=== PATIENT | female | born 1970 | race Caucasian/White ===

== ENCOUNTER → 2016-10-15 | Outpatient (CLI) | payer OTHER ==
--- NOTE | 2016-10-15 15:06 | Diagnostic Imaging Report ---
Bilateral screening mammogram. The current study was also evaluated with a Computer Aided Detection (CAD) system. INDICATION: Screening. No current complaints stated on the questionnaire. COMPARISON: 09/12/2015. FINDINGS: The breasts are composed of a heterogeneously dense parenchyma which may decrease mammographic sensitivity. There is no mass, architectural distortion, or suspicious cluster of calcification. Allowing for technique and positional differences, no suspicious change is seen. IMPRESSION: No significant change. ACR BI-RADS Category 2: Benign findings. Result letter will be mailed to the patient. Note: At least 10% of breast cancer is not imaged by mammography. Dictated by: Dictated on workstation # [id number]
== END ==
LOC: RAD 10:05
PROVIDERS: ATTEND Obstetrics & Gynecology
DX: Z12.31 Encounter for screening mammogram for malignant neoplasm of breast (principal)

== ENCOUNTER → 2018-03-16 | Outpatient (CLI) | payer OTHER ==
--- NOTE | 2018-03-16 12:07 | Diagnostic Imaging Report ---
INDICATION: Routine screening. COMPARISON: 10/15/2016 and 09/12/2015. TECHNIQUE: 2D and 3D bilateral screening mammography was performed with CAD. FINDINGS: Both breasts are heterogeneously dense, limiting the sensitivity of mammography. The parenchymal pattern is stable. No mass or malignant appearing microcalcifications are seen. The axillae are unremarkable. IMPRESSION: No mammographic features suspicious for malignancy are identified. ACR BI-RADS Category 1: Negative. Result letter will be mailed to the patient. Note: At least 10% of breast cancer is not imaged by mammography. Dictated by: Dictated on workstation # [id number]
== END ==
LOC: RAD 08:57
PROVIDERS: ATTEND Obstetrics & Gynecology
DX: Z12.31 Encounter for screening mammogram for malignant neoplasm of breast (principal)
CPT/HCPCS: 77067

== ENCOUNTER → 2021-06-07 | Outpatient (CLI) | payer OTHER ==
--- NOTE | 2021-06-07 12:51 | Diagnostic Imaging Report ---
INDICATION: Splenic cyst. PROCEDURE: Ultrasound abdomen complete. TECHNIQUE: Multiple real-time grayscale images were obtained of the abdomen in various projections. Liver is normal in size at 14.5 cm. The portal vein is patent and shows normal direction of flow. No liver mass is detected. Gallbladder contains multiple small stones. No wall thickening or biliary ductal dilatation is seen. Pancreas is unremarkable. The spleen is normal in size at 10.9 cm. There is a cyst measuring 2.5 x 2.7 x 2.4 cm within the spleen. Kidneys are unremarkable. No calculi or hydronephrosis is seen. There is no ascites. IMPRESSION: 1. Cholelithiasis without evidence of acute cholecystitis. 2. Splenic cyst. Dictated by: Dictated on workstation # [id number]
== END ==
LOC: RAD 08:45
PROVIDERS: ATTEND Surgery
DX: D73.4 Cyst of spleen (principal); K80.20 Calculus of gallbladder without cholecystitis without obstruction
CPT/HCPCS: 76700

== ENCOUNTER 2021-07-19 06:03 | Day surgery (SDC) | payer OTHER ==
[~2021-07-19] VITALS: Ht 172 cm; Wt 88.3 kg
[2021-07-19] VITALS (11 sets, daily range): BP systolic 108–131; BP diastolic 60–72
[~2021-07-19 06:03] MED LIST: CHOL400T29 PO; MULT-141 PO; VITA1TAB17 PO
[2021-07-19] MEDS ORDERED: ceFAZolin 2 GM IV Premixed 50 ML IV ONE (06:15)
[2021-07-19] MEDS ORDERED: MIDAZOLAM 2 MG/2 ML (VERSED) VIAL IVP ONE (07:00)
[2021-07-19] MEDS: LACTATED RINGERS 1,000 ML IV PRN ×2 (07:00→08:35)
[2021-07-19] MEDS ORDERED: LIDOCAINE/EPI 1%-1:100,000 (XYLOCAINE) 20ML ONE (07:21)
[2021-07-19] MEDS ORDERED: fentaNYL INJ 100 MCG/2 ML AMP ONE (07:51)
[2021-07-19] MEDS ORDERED: MIDAZOLAM 2 MG/2 ML (VERSED) VIAL ONE (07:51)
[2021-07-19] MEDS ORDERED: ONDANSETRON 4 MG/2 ML (SDV) Z0FRAN ONE ×2 (07:51→09:13)
[2021-07-19] MEDS ORDERED: proPOfol 200 MG/20 ML (DIPRIVAN) VIAL IV ONE (07:51)
[2021-07-19] MEDS ORDERED: GLYCOPYRROLATE 0.2 MG/ML (ROBINUL) 2 ML VIAL ONE (07:51)
[2021-07-19] MEDS ORDERED: ROCURONIUM 10 MG/ML 5 ML SYRINGE IV ONE (07:51)
[2021-07-19] MEDS ORDERED: LIDOCAINE PF 2% 5 ML (XYLOCAINE) VIAL ONE (07:51)
[2021-07-19] MEDS ORDERED: NEOSTIGMINE 3 MG/3 ML VIAL ONE (07:51)
--- NOTE | 2021-07-19 07:54 | Progress Note-Pre Operative ---
Pre-Operative Progress Note H&P Reviewed The H&P was reviewed, patient examined and no changes noted. Date Seen by Provider: Jul 19, 2021 Time Seen by Provider: 07:49 Date H&P Reviewed: Jul 19, 2021 Time H&P Reviewed: 07:49 Pre-Operative Diagnosis: symptomatic cholelithiasis, epigastric abdominal pain JOSE CRUZ DOTY DO Jul 19, 2021 07:54
[2021-07-19] MEDS ORDERED: HYDROmorphone 2 MG/ML VIAL (DILAUDID) ONE ×2 (08:39→09:33)
--- NOTE | 2021-07-19 08:45 | Progress Note-Post Operative ---
Post-Operative Progess Note Surgeon (s)/Mathematician (s) Surgeon JOSE CRUZ DOTY DO Mathematician: Dr. Prince to assist in retraction dissection and closure. Pre-Operative Diagnosis symptomatic cholelithiasis, epigastric abdominal pain Post-Operative Diagnosis same, small splenule left upper quadrant. Procedure & Operative Findings Date of Procedure 07/19/21 Procedure Performed/Findings PROCEDURE: Laparoscopic cholecystectomy with intraoperative cholangiogram. COMPLICATIONS: None. PROCEDURE: The patient was taken to the operating suite and was prepped and draped in sterile fashion. A surgical pause was performed. Just superior to the umbilicus, a 12 mm incision was made. Dissection was taken down to the fascia, which was then scored and grasped with a Mnan and the abdomen was then entered. A 0 Vicryl suture was placed in a xzhxrn-jw-lquzw fashion and a Preston trocar was placed and secured. Pneumoperitoneum was achieved. A 5mm trochar place in the subxyphoid and 2 in the right upper quadrant. The gallbladder was then grasped and elevated. The cystic duct, and cystic artery were then dissected out. Clip was placed on the distal portion of the cystic duct which was then partially transected. An arrow catheter was inserted into the duct. The cholangiogram was then performed. No filing defects and contrast made its way into the duodenum. Catheter removed. Clips were placed on proximal portion of the cystic duct and then the duct was then transected. Clips were placed along the proximal and distal portion of the cystic artery which was then transected. Hook cautery was used to dissect the gallbladder from the gallbladder fossa achieving hemostasis. The gallbladder was placed in an Endobag and removed through the 12 mm trocar site. The abdomen was then reinspected. Copious amounts of irrigation were used to irrigate the abdomen and there were no signs of active bleeding. Hemostasis had been achieved. Small splenule in the left upper quadrant. Spleen has normal appearance that could be visualized. The 12 mm fascial defect was then closed with 0 Vicryl suture that had been placed in a wuaehu-jt-aoxqu fashion. The abdomen was then desufflated, the trocars were removed. The abdomen was then washed and dried. The skin was then closed using 4-0 Monocryl in a subcuticular fashion. The abdomen was washed and dried and Skin Affix was place over incisions. Patient tolerated the procedure well without any complications and was taken to the recovery room in stable condition. Anesthesia Type general Estimated Blood Loss Estimated blood loss (mL): minimal Specimens/Packing Specimens Removed gallbladder JOSE CRUZ DOTY DO Jul 19, 2021 08:45
[2021-07-19] MEDS ORDERED: DOCU-143 PO (08:46)
[2021-07-19] MEDS ORDERED: ACHD5005 PO (08:46)
[2021-07-19] MEDS ORDERED: SEVOFLURANE (ULTANE) 15 ML INHAL SOLN ONE (08:46)
--- NOTE | 2021-07-19 08:47 | Discharge Inst-Simple/Standard ---
Discharge Inst-Standard Discharge Medications New, Converted or Re-Newed RX: Transmitted to Pharmacy Patient Instructions/Follow Up Plan of Care/Instructions/FU: 2 weeks Elo Activity as Tolerated: No Discharge Diet: Regular Diet Other Inst to Patient Follow up Appt: Make appointment for 2 weeks. Instructions: No lifting greater than 10 pounds. No strenuous activity. May shower in 24 hours, no tub bath or soaking. Use incentive spirometer at home as directed. No Smoking Skin/Wound Care: You have special glue over incision, it will fall off on it's own. Symptoms to Report: Appetite Changes, Extremity Discoloration, Numbness/Tingling, Swelling Increased, Bleeding Excessive, Eyesight Changes, Pain Increased, Urine Color Change, Constipation(Persistent), Fever over 101 degree F, Pain/Pressure in chest, Urinating Difficulty, Cough Up/Vomit Blood, Heart Beat Irreg/Pounding, Pain/Pressure in jaw, Vaginal Bleeding Increase, Cramps in feet or legs, Lightheadedness, Pain/Pressure in shoulder, Diarrhea(Persistent), Memory Changes Suddenly, Questions/Concerns, Weight gain consecutive days, Dizziness/Fainting, Nausea/Vomiting, Shortness of Breath, Weight gain over 2 pounds. If eyes or skin turn yellow notify physician. If questions or concerns contact your physician Or seek help at emergency department. JOSE CRUZ DOTY DO Jul 19, 2021 08:47
--- NOTE | 2021-07-19 09:02 | Diagnostic Imaging Report ---
Indication: Fluoroscopy during intraoperative cholangiogram. Fluoroscopy was provided in the OR during intraoperative cholangiogram. 6 seconds of fluoroscopic time was utilized. 25 images were obtained and demonstrate contrast injected via the cystic duct remnant. Intrahepatic and extrahepatic bile ducts appear to be of normal caliber. There are no filling defects. Contrast passes into the duodenum. IMPRESSION: Fluoroscopy during intraoperative cholangiogram. Dictated by: Dictated on workstation # [id number]
[2021-07-19] MEDS ORDERED: ONDANSETRON 4 MG/2 ML (SDV) Z0FRAN IVP PRN (09:30)
[2021-07-19] MEDS ORDERED: HYDROmorphone 2 MG/ML VIAL (DILAUDID) IV ONE (09:45)
[2021-07-19] MEDS ORDERED: HYDROcodone/APAP 5 MG/325 MG (LORTAB) TAB PO ONE (10:00)
[2021-07-19] MEDS ORDERED: HYDROcodone/APAP 5 MG/325 MG (LORTAB) TAB ONE (10:13)
--- NOTE | 2021-07-19 11:03 | Anesthesia-General Post-Op ---
General Patient Condition Mental Status/LOC: Same as Preop Cardiovascular: Satisfactory Nausea/Vomiting: Absent Respiratory: Satisfactory Pain: Controlled Complications: Absent Post Op Complications Complications None Follow Up Care/Instructions Patient Instructions None needed. Anesthesia/Patient Condition Patient Condition Patient is doing well, no complaints, stable vital signs, no apparent adverse anesthesia problems. LINDA WINTER DO Jul 19, 2021 11:03
== END 2021-07-19 11:15 | disposition home or self-care (01) ==
LOC: SDC 06:03
PROVIDERS: ATTEND Surgery
DX: K80.10 Calculus of gallbladder with chronic cholecystitis without obstruction (principal); D73.4 Cyst of spleen; Z11.2 Encounter for screening for other bacterial diseases
CPT/HCPCS: 76000; 84703; 87081

== ENCOUNTER 2023-01-01 05:34 | Outpatient (CLI) | payer OTHER ==
[~2023-01-01] VITALS: Ht 172.7 cm; Wt 82.1 kg
[~2023-01-01 05:34] MED LIST changes: +ACHD5005 PO; +DOCU-143 PO
[2023-01-06] MEDS ORDERED: ASCO100024 PO (13:20)
== END 2023-01-06 13:24 ==
LOC: PREOP 05:34
PROVIDERS: ATTEND Surgery
DX: Z01.818 Encounter for other preprocedural examination (principal); Z12.11 Encounter for screening for malignant neoplasm of colon

== ENCOUNTER 2023-01-10 12:14 | Day surgery (SDC) | payer OTHER ==
[~2023-01-10] VITALS: Ht 172.7 cm; Wt 82.1 kg
[~2023-01-10 12:14] MED LIST changes: +ASCO100024 PO
[2023-01-10] MEDS ORDERED: LACTATED RINGERS 1,000 ML IV STA (12:20)
[2023-01-10 12:30] VITALS: BP 105/58
[2023-01-10] MEDS ORDERED: PROPOFOL INJECTION 50 ML IV ONE (15:13)
--- NOTE | 2023-01-10 15:38 | Progress Note-Post Operative ---
Post-Operative Progess Note Surgeon (s)/Customer Service Sales Associate (s) Surgeon JOSE CRUZ DOTY DO Customer Service Sales Associate: none Pre-Operative Diagnosis screening colonoscopy Post-Operative Diagnosis normal colon Procedure & Operative Findings Date of Procedure 01/10/23 Procedure Performed/Findings colonoscopy Anesthesia Type per power press tender Estimated Blood Loss Estimated blood loss (mL): none Specimens/Packing Specimens Removed none JOSE CRUZ DOTY DO Jan 10, 2023 15:38
--- NOTE | 2023-01-10 15:38 | Discharge Inst-Simple/Standard ---
Discharge Inst-Standard Reconcile Patient Problems Problems Reviewed?: Yes Patient Instructions/Follow Up Plan of Care/Instructions/FU: Repeat colonoscopy in 10 years, 5 years if any family history, to be seen sooner if any issues Activity as Tolerated: Yes Discharge Diet: No Restrictions, Regular Diet JOSE CRUZ DOTY DO Jan 10, 2023 15:37
[2023-01-10 15:45] VITALS: BP 89/50
[2023-01-10 15:50] VITALS: BP 90/50
[2023-01-10 16:15] VITALS: BP 90/50
--- NOTE | 2023-01-11 01:16 | OPERATIVE REPORT ---
DATE OF SERVICE: 01/10/2023 PREOPERATIVE DIAGNOSIS: Screening colonoscopy. POSTOPERATIVE DIAGNOSIS: Normal colon. PROCEDURE: Colonoscopy. SURGEON: Jose Cruz Gasca DO ANESTHESIA: Per CAR TOP BOLTER. ESTIMATED BLOOD LOSS: None. COMPLICATIONS: None. INDICATIONS: The patient is a 52-year-old female, needing screening colonoscopy. She understands risks and benefits of procedure and wishes to proceed. Consent was signed in chart. DESCRIPTION OF PROCEDURE: The patient was taken to endoscopy suite, placed in left lateral recumbent position. Timeout was performed. Digital rectal exam was performed. No palpable polyps, masses or ulcerations. Scope was inserted in the rectum, advanced all the way to the cecum with minimal difficulty. Prep was adequate. Scope was slowly retracted back. No polyps, masses or ulcerations in the cecum, ascending, transverse, descending and sigmoid colon. Once in the rectum, scope was retroflexed noting no other pathology. Scope was returned to its normal position, slowly withdrawn until completely removed. The patient tolerated procedure well without complications. She was taken to recovery room in stable condition. RECOMMENDATIONS: The patient will need repeat colonoscopy in 10 years unless family history of colon cancer, which will be 5 years. Any issues before that, be seen at that time. Job ID: [id number] DocumentID: [id number] Dictated Date: 01/10/2023 21:21:54 Top Polisher Date: 01/11/2023 01:15:00 Dictated By: JOSE CRUZ GASCA DO
== END 2023-01-10 16:15 | disposition home or self-care (01) ==
LOC: ENDO 12:14
PROVIDERS: ATTEND Surgery
DX: Z12.11 Encounter for screening for malignant neoplasm of colon (principal); D50.9 Iron deficiency anemia, unspecified